=== PATIENT | male | born 1965 | race African-American/Black ===

== ENCOUNTER 2021-08-22 01:59 | Emergency (ER) | payer BC, OTHER ==
[~2021-08-22] VITALS: Ht 177.8 cm; Wt 88.5 kg
[2021-08-22] MEDS ORDERED: KETOROLAC TROMETH 60MG/2ML VIAL IM ONE (02:15)
[2021-08-22] MEDS ORDERED: MORPHINE SULFATE INJECTION 2 MG/ML SYRG IM ONE (02:30)
[2021-08-22 03:37] VITALS: BP 182/115
[2021-08-22] MEDS ORDERED: methylPREDNISolone SOD SUCC 125 MG/2 ML VL IM ONE (03:45)
== END 2021-08-22 04:16 | disposition home or self-care (01) ==
LOC: ER 01:59
DX: S33.5XXA Sprain of ligaments of lumbar spine, initial encounter (principal); M54.32 Sciatica, left side; M54.16 Radiculopathy, lumbar region; X58.XXXA Exposure to other specified factors, initial encounter; Y93.89 Activity, other specified; Y92.89 Other specified places as the place of occurrence of the external cause; Y99.8 Other external cause status
CPT/HCPCS: 96372; 99284; J1885; J2270; J2930